=== PATIENT | female | born 1945 | race Caucasian/White ===

== ENCOUNTER 2016-09-18 08:01 | Inpatient (IN) | payer BC, OTHER ==
[2016-08-13 09:00] VITALS: BMI 35.0
--- NOTE | 2016-08-13 09:31 | PAT Medication Instructions ---
Service Date Aug 13, 2016. Current Home Medication List Ferrous Sulfate (Iron), 1 TAB PO HS Hydrochlorothiazide (Hctz), 50 MG PO noon Levothyroxine Sodium (Levothyroxine Sodium), 1 TAB PO QAM Ranitidine (Zantac), 300 MG PO HS Medication Instructions For Your Scheduled Surgery - Hold the following medications the morning of surgery: Hydrochlorothiazide (Hctz), 50 MG PO noon - Take the following medications the morning of surgery with a sip of water: Levothyroxine Sodium (Levothyroxine Sodium), 1 TAB PO QAM - Take the following medications as scheduled the night before surgery: Ranitidine (Zantac), 300 MG PO HS Ferrous Sulfate (Iron), 1 TAB PO HS If you have any questions please call us at [phone] or [phone] or [phone]
[2016-08-13 10:03] LABS: BASO % 0.5 %; BASO ABS # 0.03 K/uL (0-0.2); COMPLETE YES; EOS % 3.3 %; HEMATOCRIT 41.9 % (37-47); IG% 0.2 %; LYMPH % 40.4 %; LYMPH ABS # 2.42 K/uL (1.2-3.4); MEAN CELL VOLUME 95.2 fL (80-100); MEAN CORPUSCULAR HEMOGLOBIN 30.9 pg (25-34); MEAN CORPUSCULAR HGB CONC 32.5 g/dl (32-36); MEAN PLATELET VOLUME 11.1 fL (7.4-10.4); MONO % 7.2 %; NEUT % 48.4 %; PLATELET COUNT 261 K/uL (130-400); WHITE BLOOD COUNT 5.99 K/uL (4.8-10.8)
[2016-08-13 10:19] LABS: INR 0.9 (0.9-1.1); PROTHROMBIN TIME (PATIENT) 10.1 SECONDS (9.0-12.0)
--- NOTE | 2016-08-13 10:28 | DIAGNOSTIC IMAGING REPORT ---
CHEST PREADMISSION(PA/LAT) HISTORY: Preop. COMPARISON: None. FINDINGS: The lungs are clear. Cardiac silhouette is normal in size. No pleural effusions. No pneumothorax. Lobular retrocardiac density favors a moderate hiatus hernia. IMPRESSION: No acute process. Moderate hiatus hernia. Electronically signed by: Inderjit Goldsmith M.D. 08/13/2016 10:27 AM Dictated Date/Time: 08/13/2016 10:26 AM
[2016-08-13 11:15] LABS: BUN/CREATININE RATIO 18.1 (10-20); CREATININE 0.66 mg/dl (0.60-1.20); POTASSIUM 3.9 mmol/L (3.5-5.1)
[2016-08-13 11:18] LABS: C-REACTIVE PROTEIN 0.42 mg/dl (0-0.29)
--- NOTE | 2016-09-13 12:51 | History and Physical ---
History & Physical Documentation Date Sep 13, 2016. Chief Complaint Left knee pain HPI (Knee Pain) Pain Location: Anterior knee, Lateral knee, Posterior knee, Medial knee Duration: Years Adversely Affecting: ADL's, Work, Recreation Symptoms Include: + Pain, + Giving way History of Injury/Trauma: Uncertain Non-Surgical Therapies: Behavior modification, Exercise program Mechanical Assistive Devices: none Joint Injection: Steroid Prior Orthopedic Procedures: Arthroscopy Past Medical/Surgical History [id number] Obesity with BMI=35 GERD Breast cancer s/p resection Breast removal Left Knee scope - [address] Hennessy Additional History Hepatic Disease: No Endocrine Disorder: Yes Kidney Disease: No Hypertension: No Heart Disease: No Bleeding Tendencies: No Infectious Diseases: No Family History Diabetes Lung Cancer Social History Smoking Status: Never Smoker Smokeless Tobacco Use: No Drug Use: none Marital Status: Housing status: lives with family Allergies Coded Allergies: No Known Allergies (Unverified , 08/13/16) Home Medications Scheduled Ferrous Sulfate (Iron), 1 TAB PO HS Hydrochlorothiazide (Hctz), 50 MG PO noon Levothyroxine Sodium (Levothyroxine Sodium), 1 TAB PO QAM Ranitidine (Zantac), 300 MG PO HS Review of Systems Constitutional: No fever, No chills, No sweats, No weight loss, No weakness, No fatigue, No problem reported Respiratory: No cough, No sputum, No wheezing, No shortness of breath, No dyspnea on exertion, No dyspnea at rest, No hemoptysis, No problem reported Cardiovascular: No chest pain, No orthopnea, No PND, No edema, No claudication , No palpitations, No problem reported Abdomen: No pain, No nausea, No vomiting, No diarrhea, No constipation, No GI bleeding, No problem reported Musculoskeletal: + joint pain, + muscle pain Genitourinary - Female: No dysuria, No urinary frequency, No urinary urgency, No urinary incontinence, No urinary retention, No hematuria, No dysmenorrhea, No menorrhagia, No metrorrhagia, No rash, No vaginal bleeding, No vaginal discharge, No vaginal itching, No vulvodynia, No , No problem reported Neurologic: No memory loss, No paralysis, No weakness, No numbness/tingling, No vertigo, No balance problems, No problem reported Physical Exam Skin: warm/dry Eyes: normal inspection ENT: normal ENT inspection Head: normocephalic Neck: supple, no adenopathy Respiratory/Chest: lungs clear Cardiovascular: regular rate, rhythm Abdomen / GI: non tender Back: normal inspection Neurovascular: Warm, Dry, Normal perfusion, Normal pedal pulses, Normal motor strength Neurologic/Psych: no motor/sensory deficits Physical Exam (Knee) Inspection: + Effusion Gait: + Limp, + Antalgic Range of Motion: With crepitation (ROM = 0-125 degrees) Alignment: + Genu varum Stability: No Coleen, No Anterior drawer, No Varus laxity, No Rotational laxity, No Posterior drawer, No Valgus laxity, No pertinent finding Tenderness: Medial joint line Radiology Plain Films: Osteophytes, Subchondral sclerosis Plain Films Joint Space: Severe narrowing Diagnosis & Plan Diagnosis & Plan (1) Left Knee DJD Plan: TKA Left TKR
[2016-09-18] VITALS (9 sets, daily range): BP systolic 107–146; BP diastolic 55–82; PULSE 65–73; TEMP 36.4–36.9; O2SAT 89–97; Ht 167.6 cm; Wt 98.4 kg
[~2016-09-18] VITALS: Ht 167.6 cm; Wt 98.4 kg
[~2016-09-18 08:01] MED LIST: ACETAMINOPHEN 500 MG TAB PO SCH; BUPIVACAINE 0.5 % 5 MG/1 ML PF 10ML VIAL ONE; BUPIVACAINE LIPOSOME 266 MG, BUPIVACAINE/EPINEPHRINE INJ 50 ML, SODIUM CHLORIDE 0.9% PF... INFIL SCH; BUPIVACAINE/EPINEPHRINE 0.25% 10 ML VIAL ONE; CEFAZOLIN 2000 MG/60 ML D5W 60 ML IV SCH; DEXAMETHASONE SOD INJ 4 MG/ML VIAL ONE; FAMOTIDINE 20 MG TAB PO SCH; FERR1TAB61 PO; GABAPENTIN 300 MG CAP PO SCH; HYDR50TA3 PO; LACTATED RINGER'S 1000ML 1,000 ML IV SCH; LACTATED RINGER'S 1000ML 500 ML IV ONE; LACTATED RINGER'S 1000ML IV SCH; LEVO125T4 PO; METOCLOPRAMIDE HCL 10 MG TAB PO SCH; RANI300T2 PO; SCOPOLAMINE 1.5 MG TDSY TD SCH; TRANEXAMIC ACID INJ 1,000 MG in SODIUM CHLORIDE 0.9% 100ML 100 ML IV SCH
--- NOTE | 2016-09-18 08:36 | History & Physical Bridge Note ---
H&P Re-Evaluation Bridge Note: I have examined the patient, reviewed the History & Physical and in the interval since the performance of the History & Physical I have noted the following changes of clinical significance: No changes noted
[2016-09-18] MEDS ORDERED: ONDANSETRON INJ 2 MG/ML 2 ML VIAL ONE (09:40)
[2016-09-18] MEDS ORDERED: PROPOFOL IV EMULSION 10 MG/ML 20 ML VIAL IV ONE (09:40)
[2016-09-18] MEDS ORDERED: MIDAZOLAM HCL 1 MG/ML 2ML VIAL ONE (09:41)
[2016-09-18] MEDS ORDERED: FENTANYL CITRATE INJ 50 MCG/1 ML 2 ML VIAL ONE (09:41)
[2016-09-18] MEDS ORDERED: ATROPINE SULFATE 0.1 MG/ML 5ML SYR IV PRN ×2 (10:15→13:45)
[2016-09-18] MEDS ORDERED: ONDANSETRON INJ 2 MG/ML 2 ML VIAL IV PRN (10:15)
[2016-09-18] MEDS ORDERED: EpHEDrine SULFATE INJ 50 MG/ML AMP IV PRN ×2 (10:15→13:45)
[2016-09-18] MEDS ORDERED: PROMETHAZINE HCL INJ 6.25 MG in SODIUM CHLORIDE 0.9% 50ML 50 ML IV PRN (10:15)
[2016-09-18] MEDS ORDERED: SODIUM CHLORIDE 0.9% PF 50 ML VIAL ONE (11:07)
[2016-09-18] MEDS ORDERED: BACITRACIN 50000 UNIT VIAL ONE (11:08)
[2016-09-18] MEDS ORDERED: BUPIVACAINE LIPOSOME 1/3% 266 MG/20 ML VIAL INFIL ONE (11:08)
[2016-09-18] MEDS ORDERED: BUPIVACAINE/EPINEPHRINE 0.25% 1:200,000 30 ML VIAL ONE (11:11)
[2016-09-18] MEDS ORDERED: VANCOMYCIN HCL 1000MG/20ML VIAL ONE (11:22)
[2016-09-18] MEDS ORDERED: KETAMINE HCL INJ 50 MG/ML 10 ML VIAL ONE (11:44)
[2016-09-18] MEDS ORDERED: SODIUM CHLORIDE 0.9% INJ 10 ML VIAL ONE (11:54)
[2016-09-18] MEDS ORDERED: EpHEDrine SULFATE 50MG/5ML SYR ONE (12:29)
--- NOTE | 2016-09-18 13:05 | [facility] Post Operative Brief Note ---
Immediate Operative Summary Operative Date Sep 18, 2016. Pre-Operative Diagnosis Left knee degenerative joint disease Post-Operative Diagnosis Same as preop Procedure(s) Performed Left total knee arthroplasty Surgeon Dr. Park Buyer Grain Surgeon(s) Braulio Zuñiga PA-C Estimated Blood Loss 50 cc Findings Left Knee DJD Fluids (cc crystalloids) 1200 cc Specimens A: left knee bone and tissue Drains None Anesthesia Spinal Complication(s) None Disposition Recovery Room / PACU
[2016-09-18] MEDS ORDERED: ALUMINUM/MAGNESIUM/SIMETH (MAALOX MAX) 30 ML UDC PO PRN (13:15)
[2016-09-18] MEDS ORDERED: ZOLPIDEM TARTRATE 5 MG TAB PO PRN (13:15)
[2016-09-18] MEDS ORDERED: SILVER SULFADIAZINE 1% CR 50 GM JAR EXT PRN (13:15)
[2016-09-18] MEDS ORDERED: MAGNESIUM HYDROXIDE SUSP 30 ML UDC PO PRN (13:15)
[2016-09-18] MEDS ORDERED: BISACODYL 10 MG SUPP PR PRN (13:15)
[2016-09-18] MEDS ORDERED: METOCLOPRAMIDE HCL INJ 5 MG/ML 2 ML VIAL IV PRN (13:15)
[2016-09-18] MEDS: FENTANYL CITRATE INJ 50 MCG/1 ML 2 ML VIAL IV PRN ×2 (13:16→13:21)
--- NOTE | 2016-09-18 13:37 | Anesthesiology Progress Note ---
Anesthesia Post Op Note Date & Time Sep 18, 2016 at 13:37 Vital Signs Pain Intensity: 1 Vital Signs Past 12 Hours Date Time Temp Pulse Resp B/P (MAP) Pulse Ox O2 Delivery O2 Flow Rate FiO2 09/18/16 13:30 36.5 67 14 111/59 99 Oxymask 2 09/18/16 13:20 70 18 127/63 99 Oxymask 5 09/18/16 13:10 36.6 78 16 125/65 99 Oxymask 10 09/18/16 08:39 36.6 65 20 142/82 97 Room Air Notes Mental Status: alert / awake / arousable, participated in evaluation Pt Amnestic to Procedure: Yes Nausea / Vomiting: adequately controlled Pain: adequately controlled Airway Patency, RR, SpO2: stable & adequate BP & HR: stable & adequate Hydration State: stable & adequate Neuraxial Anesthesia: was administered, sensory block is resolving Anesthetic Complications: no major complications apparent
--- NOTE | 2016-09-18 13:46 | OPERATIVE REPORT ---
DATE OF OPERATION: 09/18/2016 SURGEON: Anderson Park MD FILM WRITER: BUSTER Velazquez PREOPERATIVE DIAGNOSIS: Left knee degenerative joint disease. POSTOPERATIVE DIAGNOSIS: Same. PROCEDURE PERFORMED: Left cemented posterior stabilized total knee arthroplasty. COMPLICATIONS: None. ESTIMATED BLOOD LOSS: 50 mL. FLUID REPLACEMENT: 1200 mL crystalloid fluid replacement. ANESTHESIA: Spinal with adductor canal block. DRAINS: None. SPECIMENS: Left knee sent for pathology. TOURNIQUET TIME: 52 minutes at 300 mmHg. OPERATIVE INDICATIONS: The patient is a 71-year-old female who has had a several year history of left knee pain and discomfort, which gradually gotten worse over time. She did have a history of a knee arthroscopy done several years ago, which provided very temporary relief. X-rays show progressive left knee medial compartment DJD. The patient failed conservative treatment and elected to proceed with operative treatment/knee replacement. OPERATIVE FINDINGS: Operative findings revealed moderate sized knee joint effusion. She did have pretty extensive grade 4 changes of the medial femoral condyle and medial tibial plateau. No real eburnation, but just worn cartilage. She had some focal grade 4 changes of the patellofemoral joint. The lateral compartment was pretty well preserved. OPERATIVE IMPLANTS: Operative implants consisted of: 1. Biomet Vanguard size 62.5 left posterior stabilized femoral component. 2. Biomet size 67 tibial tray. 3. A 10-mm posterior stabilized polyethylene insert. 4. A 28 x 8 all poly patella. OPERATIVE PROCEDURE: The patient was taken to the operating room, identified and placed on the operating table in the supine position. All contact areas were appropriately padded. IV antibiotics were provided by the anesthesia team. A spinal anesthetic and an adductor canal block had been provided in the holding area. Guzmán catheter was placed in sterile fashion. Left thigh tourniquet was then placed and left lower extremity was then prepped and draped in the usual sterile fashion. The left leg was elevated and exsanguinated with Esmarch and tourniquet was placed at 300 mmHg. An anterior approach to the left knee was then performed through a longitudinal incision centered over the patella. Sharp dissection was carried out through the subcutaneous tissues down to the level of the extensor mechanism. A medial parapatellar arthrotomy incision was made. Some subperiosteal dissection was carried out medially. The fat pad was resected from beneath the patellar tendon. The lateral patellofemoral ligament was released. The patella was everted and the knee was flexed. The osteophytes were taken off the distal femur. The ACL and PCL were then released from the distal femur and the tibia subluxated anteriorly. The external tibial alignment jig was then placed in the anterior face of the tibia and adjusted 16 mm medially. Proximal tibial cut was made to remove about 2-3 mm of bone from the most deficient aspect of the medial tibial plateau. Tibia was sized to a size 67. Attention was then drawn to the femur. The distal femur was entered with a sharp drill. The intramedullary canal was suctioned. A left 5-degree valgus cutting guide was placed. Distal femoral cutting block was pinned in place. Distal femoral cut was made to take an additional 3 mm of bone off the distal femur. The femur was then sized to a size 62.5. We did downsize this slightly. The AP cutting block was pinned parallel to the epicondylar axis, which was 4 degrees of external rotation. The anterior cut, anterior chamfer, posterior cut, and posterior chamfer cuts were made. Box cutting guide was placed and adjusted slightly lateral and the box cut was made. The knee was flexed. The remnants of the medial and lateral meniscus were excised. The osteophytes were taken off the posterior aspect of the femur. Trial femoral component was placed. Tibial tray was pinned in maximum external rotation and drill and stem punch were used to create defect in proximal tibia for the tibial tray. The knee was then trialed and a 10-mm insert fit most appropriately. Attention was then drawn to the patella. The patella was cleaned of all soft tissues. Patellar thickness measured 21 mm and it was cut down to about 14. It was sized to a size 28 patella. Lug holes were drilled for the 28 patella. Lateral osteophyte was removed. Patella button was placed. Knee was taken through range of motion and the patella tracked nicely with no thumbs test. Attention was then drawn toward placement of permanent components. All trial components were removed. Bone plug was placed in the distal femur to limit blood loss. A double batch of Palacos G cement was mixed. A left size 62.5 posterior stabilized femoral component, size 67 tibial tray, a 10-mm posterior stabilized polyethylene insert, and a 28 x 8 all poly patella were then cemented in place. I did place an additional gram of vancomycin in the cement due to her stasis changes and concerned with infection. The knee was brought out into full extension until cement hardened. A final cement check was then performed. Pericapsular tissues were injected with 100 mL of a combination of 20 mL of Exparel, 30 mL of normal saline, and 50 mL of 0.25% Marcaine with epinephrine. The tourniquet was let down for final tourniquet time of 52 minutes. Hemostasis was assured with use of electrocautery. The wound was once again irrigated. The extensor mechanism was then closed with a combination of #1 PDS suture and #1 Vicryl suture in a [id number] fashion. Extensor mechanism was checked and found to be intact. The subcutaneous tissues were then closed with 2-0 Dexon suture in a buried interrupted fashion. Skin was closed skin luis. Leg was then cleaned and dried and a sterile dressing of Xeroform, 4 x 4, sterile cast padding and Shashank bandage were applied. The patient then transferred to the recovery room in stable condition. The patient tolerated the procedure well with no complications. All needle and sponge counts were correct at the end of the operation. I attest to the content of the Intraoperative Record and any orders documented therein. Any exception s are noted below.
--- NOTE | 2016-09-18 14:44 | DIAGNOSTIC IMAGING REPORT ---
LEFT KNEE 1 OR 2 VIEWS ROUTINE CLINICAL HISTORY: Left knee degenerative joint disease. Arthroplasty. COMPARISON: Left knee radiograph March 08, 2016. FINDINGS: Alignment of the total left knee arthroplasty is anatomic. There is no fracture or unexpected radiopaque foreign body. Skin luis are present. IMPRESSION: Expected findings following total left knee arthroplasty. Electronically signed by: Maverick Savage M.D. 09/18/2016 2:43 PM Dictated Date/Time: 09/18/2016 2:43 PM
[2016-09-18] MEDS: D5W AND 1/2NSS + 20MEQ KCL 1,000 ML IV SCH (15:34)
[2016-09-18] MEDS: OXYCODONE HCL IR 5 MG TAB (IMMEDIATE RELEASE) PO PRN (15:35)
[2016-09-18] MEDS: CHECK SCOPOLAMINE PATCH PLACEMENT SCH ×2 (15:35→23:29)
[2016-09-18] MEDS ORDERED: HYDROmorphone INJ 0.5 MG/0.5 ML SYR IV PRN (15:45)
--- NOTE | 2016-09-18 16:09 | PROGRESS NOTE ---
DATE: 09/18/2016 SUBJECTIVE: A 71-year-old female postop from a left knee replacement. She is doing pretty well. Some moderate pain, she rates it at 4. No chest pain or shortness of breath. Not feeling dizzy or lightheaded. OBJECTIVE: VITAL SIGNS: Temperature 36.5. Vital signs stable. GENERAL: Physical examination reveals a pleasant, middle-aged female. She is sitting up in bed and looks pretty comfortable. LUNGS: Clear to auscultation. HEART: Regular rate and rhythm. ABDOMEN: Soft, nontender, and nondistended. EXTREMITIES: Grossly neurovascularly intact except as follows: Examination of the left lower extremity reveals the leg to be well aligned. Dressing is clean, dry and intact. She can dorsiflex and plantarflex her foot appropriately. She is neurologically intact. X-RAYS: X-rays of the left knee from the recovery room were reviewed. It shows a cemented posterior stabilized total knee arthroplasty. Components looked to be in good position. No signs of problems. ASSESSMENT: A 71-year-old female postop from a left knee replacement, doing pretty well. She is neurologically intact. Pain is reasonably well controlled. PLAN: 1. DVT prophylaxis including thigh-high TEDs, SCDs, and aspirin twice a day. 2. PT/OT. Weightbearing as tolerated. Left total knee protocol. 3. Pain control. Doing well with current pain regimen. 4. IV antibiotics x24 hours. 5. Disposition: Plan to discharge to home with home health once adequately recovered.
[2016-09-18] MEDS: FERROUS GLUCONATE 324 MG TAB PO SCH (18:16)
[2016-09-18] MEDS: KETOROLAC TROMETHAMINE 15 MG/ML VIAL IV. SCH ×2 (18:16→23:29)
[2016-09-18] MEDS ORDERED: TRANEXAMIC ACID INJ 1,000 MG in SODIUM CHLORIDE 0.9% 100ML 100 ML IV SCH (19:00)
[2016-09-18] MEDS: CEFAZOLIN IV 2,000 MG in DEXTROSE 5% 50ML 50 ML IV SCH (20:28)
[2016-09-18] MEDS: DOCUSATE SODIUM 100 MG CAP PO SCH (20:32)
[2016-09-18] MEDS: RANITIDINE HCL 150 MG TAB PO SCH (20:32)
[2016-09-18] MEDS: TAPENTADOL ER 50 MG TABCR PO SCH (20:32)
[2016-09-18] MEDS: SENNA 8.6 MG TAB PO SCH (20:32)
[2016-09-18] MEDS: ASPIRIN 325 MG ECTAB PO SCH (20:32)
[2016-09-18] MEDS: ACETAMINOPHEN 500 MG TAB PO SCH (21:43)
[2016-09-19] MEDS: D5W AND 1/2NSS + 20MEQ KCL 1,000 ML IV SCH ×2 (01:09→11:36)
[2016-09-19 03:03] VITALS: BP 102/64; PULSE 69; TEMP 36.4; O2SAT 94
[2016-09-19] MEDS: CEFAZOLIN IV 2,000 MG in DEXTROSE 5% 50ML 50 ML IV SCH (04:12)
[2016-09-19] MEDS: ACETAMINOPHEN 500 MG TAB PO SCH ×3 (05:51→21:31)
[2016-09-19] MEDS: KETOROLAC TROMETHAMINE 15 MG/ML VIAL IV. SCH ×4 (05:51→23:52)
[2016-09-19] MEDS: LEVOTHYROXINE 125 MCG TAB PO SCH (05:52)
[2016-09-19 06:43] LABS: HEMATOCRIT 34.3 % (37-47); MEAN CELL VOLUME 96.3 fL (80-100); MEAN CORPUSCULAR HEMOGLOBIN 30.6 pg (25-34); MEAN CORPUSCULAR HGB CONC 31.8 g/dl (32-36); MEAN PLATELET VOLUME 10.8 fL (7.4-10.4); PLATELET COUNT 257 K/uL (130-400); RED BLOOD COUNT 3.56 M/uL (4.2-5.4); WHITE BLOOD COUNT 11.63 K/uL (4.8-10.8)
[2016-09-19 07:13] LABS: BUN/CREATININE RATIO 20.4 (10-20); CALCIUM 8.1 mg/dl (8.5-10.1); CREATININE 0.78 mg/dl (0.60-1.20); POTASSIUM 4.4 mmol/L (3.5-5.1)
[2016-09-19] MEDS: CHECK SCOPOLAMINE PATCH PLACEMENT SCH ×3 (07:50→23:52)
[2016-09-19 08:00] VITALS: BP 118/60; PULSE 62; TEMP 36.4; O2SAT 91
[2016-09-19] MEDS: HYDROCHLOROTHIAZIDE 50 MG TAB PO SCH (08:46)
[2016-09-19] MEDS: PANTOprazole SOD 40 MG TAB PO SCH (08:46)
[2016-09-19] MEDS: FERROUS GLUCONATE 324 MG TAB PO SCH ×3 (08:47→19:05)
[2016-09-19] MEDS: DOCUSATE SODIUM 100 MG CAP PO SCH ×2 (08:47→21:31)
[2016-09-19] MEDS: ASPIRIN 325 MG ECTAB PO SCH ×2 (08:47→21:31)
[2016-09-19] MEDS: MULTIVITAMIN TAB PO SCH (08:48)
[2016-09-19] MEDS: TAPENTADOL ER 50 MG TABCR PO SCH ×2 (08:49→21:31)
[2016-09-19] MEDS: OXYCODONE HCL IR 5 MG TAB (IMMEDIATE RELEASE) PO PRN (08:50)
[2016-09-19 12:05] VITALS: BP 110/64; PULSE 70; TEMP 36.5; O2SAT 96
--- NOTE | 2016-09-19 12:20 | Orthopedic Progress Note ---
Orthopedic Progress Note Date of Service Sep 19, 2016. Subjective Post OP Day: 1 Reports: feeling well Additional Notes: pain controlled. no chest pain or SOB Objective N/V intact, dressing C/D/I, toes mobile Date Time Temp Pulse Resp B/P (MAP) Pulse Ox O2 Delivery O2 Flow Rate FiO2 09/19/16 12:05 36.5 70 18 110/64 (79) 96 Room Air 09/19/16 08:00 91 Room Air 09/19/16 08:00 36.4 62 16 118/60 (79) 91 Room Air 09/19/16 07:30 Room Air 09/19/16 03:03 36.4 69 15 102/64 (77) 94 Room Air 09/18/16 23:32 Room Air 1.0 09/18/16 23:00 36.4 72 17 107/62 (77) 93 Room Air 09/18/16 19:09 95 Nasal Cannula 1.0 09/18/16 19:05 36.4 73 16 132/70 (90) 89 Room Air 09/18/16 17:10 71 18 111/67 (82) 09/18/16 16:10 69 18 111/66 (81) 09/18/16 15:21 Nasal Cannula 2.0 09/18/16 15:20 Nasal Cannula 2.0 09/18/16 15:10 73 18 112/64 (80) 09/18/16 14:40 70 18 131/75 (93) 09/18/16 14:30 Mask 2.0 09/18/16 14:10 36.9 72 18 146/55 (85) 91 Nasal Cannula 2.0 09/18/16 14:00 62 16 107/59 97 Oxymask 2 09/18/16 13:50 69 14 108/58 97 Oxymask 2 09/18/16 13:40 65 14 103/51 99 Oxymask 2 09/18/16 13:30 36.5 67 14 111/59 99 Oxymask 2 09/18/16 13:20 70 18 127/63 99 Oxymask 5 09/18/16 13:10 36.6 78 16 125/65 99 Oxymask 10 Laboratory Results 24 Hours: Test 09/19/16 06:12 Hematocrit 34.3 % Hemoglobin 10.9 g/dL Assessment & Plan Assessment: POD #1 L TKA Discharge Planning Discharge Planning: home with home health Pain Management: other (PAIN CURRENTLY CONTROLLED. ) DVT Prophylaxis: TEDs, SCDs, ASA Therapy: Physical Therapy Discharge Planning Notes: HOME WITH HOME HEALTH LIKELY TOMORROW
[2016-09-19 15:54] VITALS: BP 116/65; PULSE 84; TEMP 36.6; O2SAT 94
[2016-09-19] MEDS ORDERED: MORP-157 PO (20:44)
[2016-09-19] MEDS ORDERED: FRRG PO (20:44)
[2016-09-19] MEDS ORDERED: ASPEC325 PO (20:44)
[2016-09-19] MEDS ORDERED: RXC5 PO (20:44)
[2016-09-19] MEDS ORDERED: ACET-24 PO (20:44)
--- NOTE | 2016-09-19 20:47 | Discharge Instructions ---
Discharge Instructions Date of Service Sep 19, 2016. Admission Reason for Admission: Left Knee Degenerative Joint Disease Discharge Discharge Diagnosis / Problem: Left Knee Replacement Discharge Goals Goal(s): Decrease discomfort, Improve function, Increase independence, Improve disease control, Therapeutic intervention Activity Recommendations Activity Limitations: per Instructions/Follow-up section Weightbearing Status: Left weightbearing . Instructions / Follow-Up Instructions / Follow-Up ACTIVITY RECOMMENDATIONS: Physical Therapy: * You will go to physical therapy three times each week for four to six weeks after your surgery in order to regain your knee range of motion and to retrain your knee to work properly. * It is just as important to make sure you are getting your knee perfectly straight as it is to regain your knee bend. * Taking a pain pill an hour before therapy can help you have a more productive and comfortable therapy session. Home Exercise: * You were shown a series of exercises (heel props, heel slides, etc.) in the hospital. Do these exercises three to four times each day including the exercises you were shown in physical therapy. Walking: * Get up and walk several times each day. For the first four weeks, try not to stand or walk for more than one hour at a time. If you do stand or walk for more than one hour, you will not hurt anything, but your knee and leg will likely swell. * As you feel comfortable, you may change from the walker or crutches to a cane and then to independent walking. MEDICATIONS: New Medicine: * You will likely be taking one or more of these medications: 1. MS Contin - A long-acting pain medication. Take 1 tablet twice a day for the first ten days to decrease your baseline level of pain. 2. Oxycodone - A quick and shorter-acting pain medication. Take one to two tablets every four to six hours to lessen your pain. 3. Iron Sulfate - Take three times each day for the month after surgery to help you replace the blood lost during surgery. 4. Aspirin - Thins your blood to lessen the chance of forming a blood clot. * The most common side effects of pain medicine and iron are nausea and constipation. If nausea or constipation is too much of a problem or if you have any questions about your new medicines or doses, call [facility] at [phone]. We will try to help you manage these issues. VERY IMPORTANT TO READ AND REVIEW" Pain: * The immediate post-operative period after knee replacement surgery is often quite painful. * You are given a prescription for pain medicine. You should take it, as directed, when you need it, especially before physical therapy and before going to bed. Pain that interferes with sleep is very common and can last several months. * You will likely need pain medicine for the first four to six weeks. It will not stop all of the pain. The pain will lessen and as you feel better, you may change to milder pain medicine such as Tylenol. * The most common side effects of pain medicine are nausea and constipation, so don't take more than you need. SPECIAL CARE INSTRUCTIONS: TEDs/Elastic Stockings: * The white elastic stockings help limit swelling and prevent blood clots from forming in your legs. The more you wear them, the more they work. * Wear them for six weeks after knee replacement surgery and four weeks after partial knee replacement. Prevention of Infection: * Take antibiotics one hour before any dental cleaning, dental work, urological procedure, gastrointestinal procedure or any invasive surgery in order to prevent your new joint from getting infected. * You may get the antibiotics from the doctor performing the procedure or you may call our office at before and we will call in a prescription to the pharmacy of your choice. Things to Watch For: * Drainage from the incision site that occurs more than one week after your surgery. * Severely increased knee/leg pain or swelling. * Increased redness at the incision site. * Fever above 102 degrees Fahrenheit. * Unusual chest pain or shortness of breath. * Unusual pain or burning with urination. Call [facility] at with any of the above problems or if you have any questions about your medicines or recovery. FOLLOW UP VISIT: Make an appointment to see your doctor for approximately two weeks after surgery for a progress check and staple removal by calling the office at . Current Hospital Diet Patient's current hospital diet: Regular Diet Discharge Diet Recommended Diet: Regular Diet Procedures Procedures Performed: Left total knee arthroplasty Pending Studies Studies pending at discharge: no Medical Emergencies . Who to Call and When: Medical Emergencies: If at any time you feel your situation is an emergency, please call [phone] immediately. . Non-Emergent Contact Non-Emergency issues call your: Surgeon . "Provider Documentation" section prepared by Anderson Park. . VTE Core Measure Inpt VTE Proph given/why not?: Other Anticoagulation, T.E.D. Stockings, SCD's
[2016-09-19] MEDS: RANITIDINE HCL 150 MG TAB PO SCH (21:31)
[2016-09-19] MEDS: SENNA 8.6 MG TAB PO SCH (21:31)
[2016-09-19] MEDS: ONDANSETRON INJ 2 MG/ML 2 ML VIAL IV PRN (21:34)
[2016-09-19 23:16] VITALS: BP 104/57; PULSE 77; TEMP 37.2; O2SAT 91
[2016-09-20] MEDS: LEVOTHYROXINE 125 MCG TAB PO SCH (05:52)
[2016-09-20] MEDS: ACETAMINOPHEN 500 MG TAB PO SCH (05:53)
[2016-09-20] MEDS: KETOROLAC TROMETHAMINE 15 MG/ML VIAL IV. SCH ×2 (05:54→12:00)
[2016-09-20 06:17] VITALS: BP 100/61; PULSE 89; TEMP 37; O2SAT 93
[2016-09-20] MEDS: ONDANSETRON INJ 2 MG/ML 2 ML VIAL IV PRN (07:21)
[2016-09-20 07:45] VITALS: BP 101/63; PULSE 68; TEMP 36.9; O2SAT 96
[2016-09-20] MEDS: FERROUS GLUCONATE 324 MG TAB PO SCH ×2 (08:30→12:30)
[2016-09-20 08:55] VITALS: O2SAT 96
[2016-09-20] MEDS: HYDROCHLOROTHIAZIDE 50 MG TAB PO SCH (08:59)
[2016-09-20] MEDS: MULTIVITAMIN TAB PO SCH (09:00)
[2016-09-20] MEDS: PANTOprazole SOD 40 MG TAB PO SCH (09:00)
[2016-09-20] MEDS: TAPENTADOL ER 50 MG TABCR PO SCH (09:02)
[2016-09-20] MEDS: DOCUSATE SODIUM 100 MG CAP PO SCH (09:51)
[2016-09-20] MEDS: ASPIRIN 325 MG ECTAB PO SCH (09:51)
[2016-09-20 10:56] VITALS: BP 101/63; PULSE 68; TEMP 36.9; O2SAT 96
--- NOTE | 2016-09-20 16:00 | PROGRESS NOTE ---
DATE: 09/20/2016 SUBJECTIVE: A 71-year-old white female postop day 2 from a left knee replacement. She is doing well. Pain is very well controlled. Therapy went well. No chest pain or shortness of breath. Not feeling dizzy or lightheaded. OBJECTIVE: VITAL SIGNS: Temperature 36.9. Vital signs stable. PHYSICAL EXAMINATION: GENERAL: Reveals a pleasant middle-aged female. She was sitting in her bedside chair when I visited her this morning. EXTREMITIES: Examination of the left leg reveals the dressing to be clean, dry and intact. She can dorsiflex and plantarflex her foot appropriately. She is neurologically intact. ASSESSMENT: A 71-year-old white female postop day 2 from left knee replacement, doing well. Pain is controlled. She is neurologically intact. PLAN: 1. DVT prophylaxis including thigh-high TEDs, SCDs, and aspirin twice a day. 2. PT/OT. Weightbear as tolerated. Left total knee protocol. 3. Pain control, doing well with current pain regimen. 4. Disposition: She is being discharged to home today with the home health.
--- NOTE | 2016-10-02 13:29 | DISCHARGE SUMMARY ---
ADMITTING PHYSICIAN AND SURGEON: Dr. Park. ADMITTING DIAGNOSIS: Left knee degenerative joint disease. SURGERY PERFORMED: Left total knee arthroplasty. SECONDARY DIAGNOSES: Hypothyroidism, obesity, gastroesophageal reflux disease, breast cancer. CONSULTS: None obtained. HISTORY AND PHYSICAL EXAMINATION: Well documented in patient's chart. HOSPITAL COURSE: The patient admitted on 09/18/2016 underwent total knee arthroplasty. She tolerated the procedure well. There were no complications. She was transferred to the PACU postoperatively and later to the orthopedic floor for further care. She was given Ancef for antibiotic prophylaxis, AMOR stockings, SCDs and aspirin for DVT prophylaxis. Hemoglobin, hematocrit and vital signs were monitored during her hospital stay and remained stable. She did not require any blood transfusions. By postoperative day 2, she was tolerating a general diet, pain was controlled with oral pain medicine. She was participating in physical therapy and had no signs or symptoms of deep vein thrombosis. On postop day 2, she was discharged home with home health services. She was given printed discharge instructions including new prescriptions for extra strength Tylenol, aspirin 325 mg b.i.d., iron supplement and oxycodone. Continue her home medications. Continue physical therapy, weightbearing as tolerated, AMOR stockings. Follow up in 10-12 days or sooner if there are problems or concerns.
== END 2016-09-20 12:45 | disposition home health service (06) | DRG 470 ==
LOC: C.ACU 08:01 → C.3E 08:30 → ENRESERV 13:41
PROVIDERS: ADMIT Orthopaedic Surgery Sports Medicine; ATTEND Orthopaedic Surgery Sports Medicine
PROC: 0SRD0J9 Replacement of Left Knee Joint with Synthetic Substitute, Cemented, Open Approach (ICD-10-PCS; principal; 2016-09-18 10:50)
DX: M17.12 Unilateral primary osteoarthritis, left knee (principal); E03.9 Hypothyroidism, unspecified; E66.9 Obesity, unspecified; K21.9 Gastro-esophageal reflux disease without esophagitis; M25.462 Effusion, left knee; R60.0 Localized edema; Z68.35 Body mass index [BMI] 35.0-35.9, adult; Z92.21 Personal history of antineoplastic chemotherapy; Z85.3 Personal history of malignant neoplasm of breast; Z79.899 Other long term (current) drug therapy